=== PATIENT | female | born 1955 | race Caucasian/White ===

== ENCOUNTER 2019-06-04 22:50 | Emergency (ER) | payer BC ==
[~2019-06-04] VITALS: Ht 170.2 cm; Wt 69.8 kg
[2019-06-05 01:00] VITALS: BP 134/81
== END 2019-06-05 01:00 | disposition home or self-care (01) ==
LOC: ER 22:50
DX: G89.18 Other acute postprocedural pain (principal); M25.562 Pain in left knee; I10 Essential (primary) hypertension